=== PATIENT | female | born 1980 | race Caucasian/White ===

== ENCOUNTER 2024-04-21 21:37 | Emergency (ER) | payer BC, SELFPAY ==
[2024-04-21 21:40] VITALS: BP 157/96; PULSE 79; RESP 18; TEMP 35.8; O2SAT 97; BMI 49.3
--- NOTE | 2024-04-21 21:49 | CRLHL7_ITS ---
For Patients: As a result of the Century Cures Act, medical imaging exams and procedure reports are released immediately into your electronic medical record. You may view this report before your referring provider. If you have questions, please contact your health care provider. INDICATION: Abdominal pain. TECHNIQUE: CT abdomen and pelvis acquired with 150 cc Isovue 370 IV contrast. COMPARISON: None. FINDINGS: Lower chest: Right lower lobe calcified granulomas. Liver: Unremarkable. Normal in size and attenuation. No suspicious masses. Gallbladder and bile ducts: Unremarkable. No stones or inflammation. No biliary ductal dilatation. Spleen: Unremarkable. Normal in size. No masses. Adrenal glands: Unremarkable. No nodules. Pancreas: Unremarkable. No mass or inflammation. Kidneys: Unremarkable. No suspicious masses, stones, or hydronephrosis. GI tract: Normal in caliber. No evidence of obstruction. Appendix is not well visualized, however there is no evidence of right lower quadrant inflammatory stranding. Lymph nodes: No lymphadenopathy. Vasculature: Unremarkable. Omentum/Peritoneum/Abdominal Wall: Unremarkable. No free air or significant free fluid. Pelvis: IUD in place. Bones: Unremarkable for age. IMPRESSION: No acute abdominal or pelvic abnormality. Please note that all CT scans at this facility use dose modulation, iterative reconstruction, and/or weight-based dosing when appropriate to reduce radiation dose to as low as reasonably achievable. Dictated by Reagan Rocha MD @ 04/21/2024 10:39:04 PM (Electronically Signed)
--- NOTE | 2024-04-21 21:51 | ED.GENADULT ---
HPI - General Adult General Chief complaint: Abdominal Pain Stated complaint: abdominal pain Time Seen by Provider: 04/21/24 21:46 History of Present Illness HPI narrative: Patient is a 43-year-old woman who presents with 3-4 days of diffuse abdominal pain. She has had loose stools but no significant reflux symptoms. No chest pain no shortness a breath orthopnea no PND no nausea no vomiting. She has had an appendectomy in the past but no cholecystectomy. Pain is localized to the left-sided the abdomen in general. Pain is moderate. Related Data Home Medications ?Medication ?Instructions ?Recorded ?Confirmed buspirone 30 mg tablet 30 mg PO BID 04/21/24 04/21/24 lisinopril 30 mg tablet 30 mg PO DAILY 04/21/24 04/21/24 metoprolol succinate 50 mg 50 mg PO DAILY 04/21/24 04/21/24 tablet,extended release 24 hr venlafaxine 150 mg 300 mg PO QPM 04/21/24 04/21/24 capsule,extended release 24 hr Allergies Allergy/AdvReac Type Severity Reaction Status Date / Time No Known Drug Allergies Allergy Verified 04/21/24 22:21 Review of Systems Status of ROS: Reports: 10 or more systems reviewed and unremarkable except as noted in History and below PFSH PFS Social History Smoking Status: Never smoker How often do you have a drink containing alcohol: monthly or less How often do you have six or more drinks on one occasion: Never AUDIT-C Alcohol total score: 1 Non-prescribed substance use: denies use Exam Narrative: Exam Narrative: EXAM GENERAL: Patient appears comfortable and well. EYES: No scleral icterus. LYMPH: No supraclavicular or cervical lymphadenopathy. SKIN: Visible skin seen during exam normal or with benign process only. EXT: No dependent lower extremity pedal edema. HEART: Regular rate and rhythm with no murmurs, rubs, or gallops. LUNGS: Clear to auscultation bilaterally with no crackles or wheezes. ABD: Soft, non tender, non distended. PSYCH: Good eye contact, speech is not pressured. Const: Vital Signs, click to edit/add: Vital Signs - 24 hr 04/21/24 21:40 Temperature 96.5 F L Pulse Rate [Left P ulse Oximeter] 79 Respiratory Rate 18 Blood Pressure [Ri ght Upper Arm] 157/96 H Pulse Oximetry 97 Oxygen Delivery Me thod Room Air Course Course ED Course: Patient seen and examined. CT abdomen pelvis CBC comprehensive metabolic panel lipase UA pending. Vital Signs Vital signs: Initial Vital Signs Temperature 96.5 F L 04/21/24 21:40 Temperature Source Temporal Artery Scan 04/21/24 21:40 Pulse Rate 79 04/21/24 21:40 Pulse Rhythm Regular 04/21/24 21:40 Respiratory Rate 18 04/21/24 21:40 Blood Pressure 157/96 H 04/21/24 21:40 Blood Pressure Mean 116 H 04/21/24 21:40 Blood Pressure Position Sitting 04/21/24 21:40 Pulse Oximetry 97 04/21/24 21:40 Oxygen Delivery Method Room Air 04/21/24 21:40 Vital Signs Temperature 96.5 F L 04/21/24 21:40 Pulse Rate 79 04/21/24 21:40 Respiratory Rate 18 04/21/24 21:40 Blood Pressure 157/96 H 04/21/24 21:40 Pulse Oximetry 97 04/21/24 21:40 Oxygen Delivery Method Room Air 04/21/24 21:40 Temperature 96.5 F L 04/21/24 21:40 Pulse Rate 79 04/21/24 21:40 Respiratory Rate 18 04/21/24 21:40 Blood Pressure 157/96 H 04/21/24 21:40 Pulse Oximetry 97 04/21/24 21:40 Oxygen Delivery Method Room Air 04/21/24 21:40 Medical Decision Making [facility] Narrative Medical decision making narrative: Patient is a 43-year-old woman comes in today with 3-4 day history of nausea abdominal pain and diarrhea. Workup is unremarkable including normal UA lipase CBC CMP CT abdomen pelvis. I am suspicious she may be developing some early cholecystitis symptoms of but nothing acute tonight. I did recommend she limit dairy and advance her diet otherwise as tolerated Tylenol Motrin rest and fluids of primary care follow-up to discuss possible outpatient ultrasound of the right upper quadrant. Lab Data Labs: Lab Results 04/21/24 Range/Units 22:00 WBC 9.16 (4.50-11.00) K/uL RBC 4.71 (4.00-5.20) m/uL Hgb 14.5 (12.0-16.0) gm/dL Hct 42.3 (33.0-51.0) % MCV 90 (80-100) fL MCH 31 (26-34) pg MCHC 34 (32-36) gm/dL RDW Coeff of Eugenia 11.5 (11.5-15.5) % Plt Count 254 (140-440) K/uL Neut % (Auto) 66.4 (42.0-72.0) % Lymph % (Auto) 23.8 (20-44) % Rains % (Auto) 8.8 (0.0-11.0) % Eos % (Auto) 0.3 (0.0-7.0) % Baso % (Auto) 0.3 (0.0-3.0) % Neut # (Auto) 6.07 (1.7-7.0) K/uL Lymph # (Auto) 2.18 (0.90-2.90) K/uL Rains # (Auto) 0.80 (0.00-0.90) K/UL Eos # (Auto) 0.03 (0.00-0.50) K/uL Baso # (Auto) 0.03 (0.00-0.30) K/uL Abs Immat Gran (auto) 0.04 (0.00-0.30) K/uL Imm/Tot Granulo (auto) 0.4 % Sodium 138 (135-149) mmol/L Potassium 3.8 (3.6-5.1) mmol/L Chloride 105 (96-114) mmol/L Carbon Dioxide 24 (20-32) mmol/L Anion Gap 9 (7-15) mEq/L BUN 20 (5-24) mg/dL Creatinine 0.8 (0.5-1.5) mg/dL Estimated Creat Clear 88.18 Estimated GFR 94 ml/min Glucose 118 H (60-115) mg/dL Calcium 9.4 (8.4-10.6) mg/dL Total Bilirubin 0.3 (0.1-1.5) mg/dL AST 32 (12-35) U/L ALT 49 H (4-35) U/L Alkaline Phosphatase 79 (40-150) U/L Total Protein 7.9 (6.0-8.3) g/dL Albumin 4.6 (3.3-5.0) g/dL Lipase 46 (23-300) U/L Urine Color Yellow (Yellow) Urine Appearance Clear (Clear) Urine pH 5.5 (5.0-8.5) Ur Specific [place] 1.015 (1.000-1.030) Urine Protein Negative (Negative) Urine Glucose (UA) Negative (Negative) Urine Ketones Negative (Negative) Urine Blood Trace-intact A (Negative) Urine Nitrite Negative (Negative) Urine Bilirubin Negative (Negative) Urine Urobilinogen 0.2 (0.2-1.0) Ur Leukocyte Esterase Negative (Negative) Urine RBC 0-2 (0-2) Urine WBC 0-2 (0-5) Ur Squamous Epith Cells Few (None-Few) Urine Bacteria None (None) Discharge Plan Discharge Clinical Impression: Abdominal pain Patient Disposition: Home, Self-Care Condition: Stable Instructions: Abdominal Pain (ED) Additional Instructions: Tylenol Motrin Rest Fluids Limit dairy Call your doctor this coming week to discuss outpatient ultrasound of the gallbladder right upper quadrant. Activity Level: No Restrictions Discharge Diet: Regular Prescriptions: No Action metoprolol succinate 50 mg tablet extended release 24 hr 50 mg PO DAILY venlafaxine 150 mg capsule,extended release 24hr 300 mg PO QPM buspirone 30 mg tablet 30 mg PO BID lisinopril 30 mg tablet 30 mg PO DAILY Follow Up/Referrals: Collin Rondon MD [Staff Physician] - Stand Alone Forms: [facility] [employer] Info Instructions
[2024-04-21 22:07] LABS: Basophils Absolute Auto 0.03 K/uL (0.00-0.30); Basophils Percent Auto 0.3 % (0.0-3.0); Eosinophils Absolute Auto 0.03 K/uL (0.00-0.50); Eosinophils Percent Auto 0.3 % (0.0-7.0); Hematocrit 42.3 % (33.0-51.0); Hemoglobin* 14.5 gm/dL (12.0-16.0); Immature Granulocytes Abs Auto 0.04 K/uL (0.00-0.30); Immature Granulocytes Pct Auto 0.4 %; Lymphocytes Absolute Auto 2.18 K/uL (0.90-2.90); Lymphocytes Percent Auto 23.8 % (20-44); Mean Corpuscular HGB Conc 34 gm/dL (32-36); Mean Corpuscular Hemoglobin 31 pg (26-34); Mean Corpuscular Volume 90 fL (80-100); Monocytes Percent Auto 8.8 % (0.0-11.0); Neutrophils Absolute Auto 6.07 K/uL (1.7-7.0); Neutrophils Percent Auto 66.4 % (42.0-72.0); Platelet Count* 254 K/uL (140-440); RDW Coefficient of Variation % 11.5 % (11.5-15.5); Red Blood Count 4.71 m/uL (4.00-5.20); White Blood Count* 9.16 K/uL (4.50-11.00)
[2024-04-21 22:09] LABS: Appearance Urine Clear (Clear); Bilirubin Urine Negative (Negative); Blood Urine Trace-intact (Negative); Color Urine Yellow (Yellow); Glucose Urine Negative (Negative); Ketones Urine Negative (Negative); Leukocyte Esterase Urine Negative (Negative); Nitrite Urine Negative (Negative); Protein Urine Negative (Negative); Specific Gravity Urine 1.015 (1.000-1.030); Urobilinogen Urine 0.2 (0.2-1.0); pH Urine 5.5 (5.0-8.5)
[2024-04-21 22:10] LABS: Slide Review Reflex No
[2024-04-21 22:18] LABS: RBC Urine 0-2 (0-2); Squamous Epithelial Cell Urine Few (None-Few); WBC Urine 0-2 (0-5)
[2024-04-21 22:23] LABS: Albumin* 4.6 g/dL (3.3-5.0)
[2024-04-21 22:24] LABS: Chloride* 105 mmol/L (96-114); Potassium* 3.8 mmol/L (3.6-5.1); Sodium* 138 mmol/L (135-149)
[2024-04-21 22:26] LABS: Alkaline Phosphatase* 79 U/L (40-150); Anion Gap 9 mEq/L (7-15); Aspartate Amino Transferase* 32 U/L (12-35); Bilirubin Total* 0.3 mg/dL (0.1-1.5); Blood Urea Nitrogen* 20 mg/dL (5-24); Carbon Dioxide* 24 mmol/L (20-32); Creatinine* 0.8 mg/dL (0.5-1.5); Est. Creatinine Clearance* 88.18; Estimated Glomerular Filt Rate 94 ml/min; Total Protein* 7.9 g/dL (6.0-8.3)
[2024-04-21 22:27] LABS: Alanine Aminotransferase* 49 U/L (4-35); Calcium* 9.4 mg/dL (8.4-10.6); Glucose* 118 mg/dL (60-115); Lipase* 46 U/L (23-300)
== END 2024-04-21 22:52 | disposition home or self-care (01) ==
PROVIDERS: Emergency Provider Internal Medicine; PCP Family Medicine
DX: R10.9 Unspecified abdominal pain (principal)
CPT/HCPCS: 36415; 74177; 80053; 81001; 81003; 83690; 85025; 99283; 99284; Q9967